=== PATIENT | female | born 1985 | race African-American/Black ===

== ENCOUNTER 2020-03-09 03:59 | Emergency (ER) | payer SELFPAY ==
[~2020-03-09] VITALS: Ht 172.7 cm; Wt 109.0 kg
[2020-03-09 04:03] VITALS: BP 153/87
== END 2020-03-09 06:25 | disposition home or self-care (01) ==
LOC: ER 03:59
DX: M54.2 Cervicalgia (principal); M79.18 Myalgia, other site
CPT/HCPCS: 99281